=== PATIENT | female | born 2000 | race African-American/Black ===

== ENCOUNTER 2023-05-30 19:21 | Observation (INO) | payer OTHER ==
[2023-05-30 19:39] VITALS: BMI 24.4
[2023-05-30] MEDS ORDERED: hydrALAZINE 20 MG/ML VIAL SLOW IVP PRN ×2 (19:44→22:01)
[2023-05-30] MEDS ORDERED: Ondansetron PF 4 MG/2 ML Vial IVP PRN (22:01)
[2023-05-30] MEDS ORDERED: Promethazine HCl 25 MG/ML VIAL IM PRN (22:01)
[2023-05-30] MEDS ORDERED: Acetaminophen 500 MG TAB PO PRN (22:01)
[2023-05-30] MEDS ORDERED: fentaNYL 50 mcg/mL 1 mL Vial SLOW IVP PRN (22:01)
[2023-05-30] MEDS ORDERED: NIFEdipine 10 MG CAP PO PRN (22:15)
[2023-05-30] MEDS ORDERED: Lactated Ringer's 1,000 ML IV SCH (22:15)
[2023-05-30] MEDS ORDERED: NS w/ Oxytocin 30 units 500 ML IV SCH (22:15)
[2023-05-30] MEDS: Betamet Acet/Betamet Na Ph 30 MG/5 ML VIAL IM SCH (22:20)
[2023-05-31] MEDS: Betamet Acet/Betamet Na Ph 30 MG/5 ML VIAL IM SCH (22:18)
== END 2023-06-01 09:20 | disposition home or self-care (01) ==
LOC: CSHLD/OP 19:21 → CSHLD 22:01
PROVIDERS: ADMIT Family Medicine; ATTEND Family Medicine
DX: O47.03 False labor before 37 completed weeks of gestation, third trimester (principal); Z3A.32 32 weeks gestation of pregnancy
CPT/HCPCS: J0702; J2405

== ENCOUNTER 2023-06-07 01:39 | Day surgery (SDC) | payer OTHER ==
[2023-06-07 02:07] VITALS: BMI 24.6
[2023-06-07] MEDS ORDERED: hydrALAZINE 20 MG/ML VIAL SLOW IVP PRN (02:17)
[2023-06-07] MEDS ORDERED: Ondansetron PF 4 MG/2 ML Vial IVP PRN (02:17)
[2023-06-07] MEDS ORDERED: Acetaminophen 325 MG TAB PO PRN (02:18)
[2023-06-07] MEDS ORDERED: Lactated Ringer's 1,000 ML IV SCH (02:30)
[2023-06-07] MEDS ORDERED: Ondansetron PF 4 MG/2 ML Vial ONE ×4 (02:56→02:59)
== END 2023-06-07 05:20 | disposition home or self-care (01) ==
LOC: CSHLD/OP 01:39
PROVIDERS: ATTEND Family Medicine
DX: O47.03 False labor before 37 completed weeks of gestation, third trimester (principal); Z3A.33 33 weeks gestation of pregnancy
CPT/HCPCS: 96360; 96375; 99282; J2405

== ENCOUNTER 2023-06-15 21:37 | Day surgery (SDC) | payer OTHER ==
[2023-06-15 22:01] VITALS: BMI 24.7
[2023-06-15] MEDS ORDERED: hydrALAZINE 20 MG/ML VIAL SLOW IVP PRN (22:18)
[2023-06-15] MEDS ORDERED: Lactated Ringer's 1,000 ML IV SCH (22:30)
[2023-06-15] MEDS ORDERED: Acetaminophen 500 MG TAB PO SCH (23:30)
[2023-06-15 23:49] LABS: Bilirubin Neg (Negative); Blood, Urine Negative (Negative); Clarity Clear (Clear); Glucose, Urine (Dipstick) Normal (Negative); Ketone, Urine 15 mg/dL (Negative); Leukocyte 500 (Negative); Nitrite Negative (Negative); Protein, Urine (Dipstick) Negative (Neg-Trace)
[2023-06-16 00:17] LABS: CAUTI Indications for Culture Pregnancy; RBC/HPF None Seen HPF (0-3)
[2023-06-16 00:18] LABS: Bacteria/HPF 1+ HPF (None Seen); Squamous Epithelial 0-3 HPF (0-3); Urine Culture Reflex Yes Yes; Yeast-Hyphae 1+ HPF (None Seen)
[2023-06-16] MEDS ORDERED: Fluconazole 100 MG TAB PO SCH (01:00)
[2023-06-16 15:22] LABS: Chlamydia by PCR, Vaginal Swab Not Detected (NotDetected); GC by PCR, Vaginal Swab Not Detected (NotDetected)
== END 2023-06-16 01:13 | disposition home or self-care (01) ==
LOC: CSHLD/OP 21:37
PROVIDERS: ATTEND Family Medicine
DX: O47.03 False labor before 37 completed weeks of gestation, third trimester (principal); O99.891 Other specified diseases and conditions complicating pregnancy; N89.8 Other specified noninflammatory disorders of vagina; Z3A.34 34 weeks gestation of pregnancy
CPT/HCPCS: 81001; 87086; 87480; 87491; 87510; 87591; 87660; 96360; 99285

== ENCOUNTER 2023-06-23 15:29 | Day surgery (SDC) | payer OTHER ==
[2023-06-23 15:52] VITALS: BMI 24.7
[2023-06-23 16:56] LABS: Bilirubin Neg (Negative); Blood, Urine Negative (Negative); Clarity Clear (Clear); Glucose, Urine (Dipstick) Normal (Negative); Ketone, Urine Negative (Negative); Leukocyte Negative (Negative); Nitrite Negative (Negative); Protein, Urine (Dipstick) Negative (Neg-Trace); Urobilinogen Normal mg/dL (Less than 2); pH, Urine 6.5 (5.0-9.0)
[2023-06-23 17:09] LABS: RBC/HPF 0-3 HPF (0-3)
[2023-06-23 17:10] LABS: Bacteria/HPF 2+ HPF (None Seen); CAUTI Indications for Culture Pregnancy
[2023-06-23 17:11] LABS: Urine Culture Reflex Yes Yes
[2023-06-24 00:20] LABS: Chlamydia by PCR, Vaginal Swab Not Detected (NotDetected); GC by PCR, Vaginal Swab Not Detected (NotDetected)
== END 2023-06-23 18:40 | disposition home or self-care (01) ==
LOC: CSHLD/OP 15:29
PROVIDERS: ATTEND Family Medicine
DX: O47.03 False labor before 37 completed weeks of gestation, third trimester (principal); O23.593 Infection of other part of genital tract in pregnancy, third trimester; O99.891 Other specified diseases and conditions complicating pregnancy; R35.0 Frequency of micturition; N89.8 Other specified noninflammatory disorders of vagina; B96.89 Other specified bacterial agents as the cause of diseases classified elsewhere; Z79.82 Long term (current) use of aspirin; Z79.899 Other long term (current) drug therapy; Z3A.35 35 weeks gestation of pregnancy
CPT/HCPCS: 51701; 81001; 87086; 87480; 87491; 87510; 87591; 87660; 99284

== ENCOUNTER 2023-07-03 19:24 | Day surgery (SDC) | payer OTHER ==
[2023-07-03 20:08] VITALS: BMI 24.6
[2023-07-03] MEDS ORDERED: hydrALAZINE 20 MG/ML VIAL SLOW IVP PRN (20:30)
== END 2023-07-03 22:00 | disposition home or self-care (01) ==
LOC: CSHLD/OP 19:24
PROVIDERS: ATTEND Family Medicine
DX: O47.1 False labor at or after 37 completed weeks of gestation (principal); O99.820 Streptococcus B carrier state complicating pregnancy; O99.343 Other mental disorders complicating pregnancy, third trimester; F41.1 Generalized anxiety disorder; Z79.899 Other long term (current) drug therapy; Z3A.37 37 weeks gestation of pregnancy
CPT/HCPCS: 99283

== ENCOUNTER 2023-07-10 09:42 | Inpatient (IN) | payer OTHER ==
[~2023-07-10 09:42] MED LIST: Bupivacaine 0.25% HCL 30 ML VIAL ONE; Lidocaine 2% MPF 10 ML AMP (For Epidural Use) ONE; ePHEDrine Sulfate 50 MG/10 ML VIAL ONE
[2023-07-10] MEDS ORDERED: Lidocaine 1% (PF) 30 ML VIAL SC PRN (09:44)
[2023-07-10] MEDS ORDERED: Promethazine HCl 25 MG/ML VIAL IM PRN ×4 (09:44→22:43)
[2023-07-10] MEDS ORDERED: Diphenoxylate HCl/Atropine Tablet PO PRN (09:44)
[2023-07-10] MEDS ORDERED: Ibuprofen 800 MG TAB PO PRN (09:44)
[2023-07-10] MEDS ORDERED: Methylergonovine 0.2 MG/ML VIAL IM PRN (09:44)
[2023-07-10] MEDS ORDERED: Carboprost 250 MCG/ML AMP IM PRN (09:44)
[2023-07-10] MEDS ORDERED: HYDROcodone/Acetaminophen 5/325 mg Tablet PO PRN (09:44)
[2023-07-10] MEDS ORDERED: Misoprostol 200 MCG TAB PR PRN (09:44)
[2023-07-10] MEDS ORDERED: Acetaminophen 500 MG TAB PO PRN (09:44)
[2023-07-10] MEDS ORDERED: fentaNYL 50 mcg/mL 1 mL Vial SLOW IVP PRN (09:44)
[2023-07-10] MEDS ORDERED: Ondansetron PF 4 MG/2 ML Vial IVP PRN ×4 (09:44→22:43)
[2023-07-10] MEDS ORDERED: Tranexamic Acid 1,000 MG/10 ML VIAL IVP PRN (09:44)
[2023-07-10] MEDS ORDERED: hydrALAZINE 20 MG/ML VIAL SLOW IVP PRN ×2 (09:44→22:43)
[2023-07-10] MEDS ORDERED: Penicillin G 2.5 MILL.units 2.5 MILL.UNITS in Premix Bag 1 BAG IVPB SCH (09:45)
[2023-07-10] MEDS ORDERED: Oxytocin 30 units/NS 500 ML 500 ML IV SCH ×3 (09:45)
[2023-07-10] MEDS: Lactated Ringer's 1,000 ML IV SCH ×3 (10:11→16:28)
[2023-07-10] MEDS: Penicillin G Potassium 5 MILL.UNITS in Sodium Chloride 0.9% 100 ML IVPB SCH ×2 (10:11→10:33)
[2023-07-10 10:58] LABS: Hematocrit 36.2 % (34.9-44.5); Hemoglobin 11.8 g/dL (12.0-15.5); Mean Corpuscular HGB CONC 32.6 g/dL (32.0-36.0); Mean Corpuscular Hemoglobin 29.8 pg (27.0-33.0); Mean Corpuscular Volume 91.4 fl (81.6-98.3); Mean Platelet Volume 11.3 fl (7.4-10.4); Platelet Count 165 10x3/uL (150-450); RBC Distribution Width 13.2 % (11.5-14.5); Red Blood Cell (RBC) Count 3.96 10x6/uL (3.90-5.03); White Blood Cell (WBC) Count 6.7 10x3/uL (3.5-10.5)
[2023-07-10] MEDS ORDERED: Lactated Ringer's 500 ML IV PRN (11:18)
[2023-07-10] MEDS ORDERED: diphenhydrAMINE 50 MG/ML VIAL IVP PRN ×2 (11:18→20:02)
[2023-07-10] MEDS ORDERED: ePHEDrine Sulfate 50 MG/10 ML VIAL SLOW IVP PRN (11:18)
[2023-07-10] MEDS ORDERED: Acetaminophen 325 MG TAB PO PRN (11:18)
[2023-07-10] MEDS ORDERED: Naloxone HCl 0.4 mg/ml Vial IVP PRN ×4 (11:18→20:02)
[2023-07-10] MEDS ORDERED: Moisturizing Cream (Eucerin) 113 GM JAR TOP PRN ×2 (11:18→20:02)
[2023-07-10 11:23] VITALS: BMI 24.6
[2023-07-10] MEDS ORDERED: ACTIVE EPIDURAL FS PRN (11:30)
[2023-07-10] MEDS ORDERED: fentaNYL 2 mcg/Ropivacaine 0.2% Epidural 100 ML CADD EPIDURAL SCH (11:30)
[2023-07-10 11:36] LABS: HBSAg Index 0.23 S/CO (0-0.99); Hep B Surf Ag - L&D Non-Reactive S/CO (NonReactive)
[2023-07-10 11:39] LABS: Syphilis Antibody Nonreactive (Nonreactive); Syphilis Antibody Index 0.04 S/CO (<1.00 Non-Reactive)
[2023-07-10] MEDS ORDERED: ePHEDrine Sulfate 50 MG/10 ML VIAL ONE (14:12)
[2023-07-10] MEDS ORDERED: PHENYLEPHRINE-NS 100 MCG/ML 10 ML SYRINGE ONE (14:12)
[2023-07-10] MEDS: Penicillin G 2.5 MILL.units 2.5 MILL.UNITS in Premix Bag 1 BAG IVPB SCH ×3 (14:32→18:04)
[2023-07-10] MEDS ORDERED: Azithromycin 500 MG VIAL ONE ×2 (19:19→19:21)
[2023-07-10] MEDS ORDERED: CEFAZOLIN 2 GM VIAL ONE (19:19)
[2023-07-10] MEDS ORDERED: Oxytocin 10 UNITS/ML VIAL ONE (19:27)
[2023-07-10] MEDS ORDERED: Morphine PF 10 MG/10 ML VIAL ONE (19:27)
[2023-07-10] MEDS ORDERED: Ondansetron PF 4 MG/2 ML Vial ONE (19:27)
[2023-07-10] MEDS ORDERED: Dexamethasone 4 mg/ml Vial ONE (19:27)
[2023-07-10] MEDS ORDERED: Promethazine HCl 25 MG/ML VIAL ONE (19:53)
[2023-07-10] MEDS ORDERED: Lidocaine 1% PF 5 ML VIAL ONE (19:53)
[2023-07-10 20:01] LABS: RapidComm Collect By CBN
[2023-07-10 20:02] LABS: RapidComm Collect By CBN; pH (Cord, venous) 7.384 (7.250-7.350)
[2023-07-10] MEDS ORDERED: Promethazine HCl 25 MG SUPP PR PRN (20:02)
[2023-07-10] MEDS ORDERED: Fentanyl 50 MCG/1 ML VIAL SLOW IVP PRN (20:02)
[2023-07-10] MEDS ORDERED: Ondansetron HCl/PF 4 MG/2 ML Vial IVP PRN (20:02)
[2023-07-10] MEDS ORDERED: Naloxone HCl 0.4 mg/ml Vial IV PRN (20:02)
[2023-07-10] MEDS ORDERED: Meperidine HCl/PF 25 MG/ML VIAL SLOW IVP PRN (20:02)
[2023-07-10] MEDS ORDERED: Ketorolac Tromethamine 30 MG/ML VIAL IVP PRN (20:02)
[2023-07-10] MEDS ORDERED: Communication Order-Pharmacy FS SCH (20:15)
[2023-07-10] MEDS ORDERED: Ketorolac Tromethamine 30 MG/ML VIAL IVP SCH (20:15)
[2023-07-10] MEDS ORDERED: fentaNYL 50 mcg/mL 1 mL Vial SLOW IVP SCH (22:00)
[2023-07-10] MEDS ORDERED: diphenhydrAMINE 25 MG CAP PO PRN (22:43)
[2023-07-10] MEDS ORDERED: Boostrix 0.5 ML (Tdap) VIAL (>/=7 yrs of age) IM ONE (22:43)
[2023-07-10] MEDS ORDERED: Bisacodyl 10 MG SUPP PR PRN (22:43)
[2023-07-10] MEDS ORDERED: Simethicone Chewable 80 MG TAB PO PRN (22:43)
[2023-07-10] MEDS ORDERED: Ferrous Sulfate 325 MG TAB PO SCH (23:00)
[2023-07-10] MEDS ORDERED: Docusate 100 MG CAP PO SCH (23:00)
[2023-07-11] MEDS: Ketorolac Tromethamine 30 MG/ML VIAL IVP SCH ×3 (02:57→13:36)
[2023-07-11 04:28] LABS: Hematocrit 30.7 % (34.9-44.5); Hemoglobin 10.2 g/dL (12.0-15.5); Mean Corpuscular HGB CONC 33.2 g/dL (32.0-36.0); Mean Corpuscular Hemoglobin 29.9 pg (27.0-33.0); Mean Platelet Volume 11.6 fl (7.4-10.4); Platelet Count 168 10x3/uL (150-450); RBC Distribution Width 13.1 % (11.5-14.5); Red Blood Cell (RBC) Count 3.41 10x6/uL (3.90-5.03); White Blood Cell (WBC) Count 12.2 10x3/uL (3.5-10.5)
[2023-07-11] MEDS: Prenatal Vitamin 1 TAB PO SCH (08:07)
[2023-07-11] MEDS: Docusate 100 MG CAP PO SCH ×2 (08:07→21:32)
[2023-07-11] MEDS: HYDROcodone/Acetaminophen 5/325 mg Tablet PO PRN ×4 (08:50→21:33)
[2023-07-11] MEDS: Ferrous Sulfate 325 MG TAB PO SCH ×2 (08:52→21:32)
[2023-07-11] MEDS ORDERED: FLUoxetine HCl 20 MG CAP PO SCH (19:45)
[2023-07-11] MEDS: Ibuprofen 800 MG TAB PO SCH (21:32)
[2023-07-12] MEDS: Ibuprofen 800 MG TAB PO SCH ×3 (05:34→21:47)
[2023-07-12] MEDS: Ferrous Sulfate 325 MG TAB PO SCH ×2 (07:27→21:14)
[2023-07-12] MEDS: HYDROcodone/Acetaminophen 5/325 mg Tablet PO PRN ×4 (07:48→23:16)
[2023-07-12] MEDS: Docusate 100 MG CAP PO SCH ×2 (07:50→21:47)
[2023-07-12] MEDS: Prenatal Vitamin 1 TAB PO SCH (07:50)
[2023-07-12] MEDS: FLUoxetine HCl 20 MG CAP PO SCH (09:00)
[2023-07-13] MEDS: Ibuprofen 800 MG TAB PO SCH (05:44)
[2023-07-13] MEDS: Ferrous Sulfate 325 MG TAB PO SCH (07:21)
[2023-07-13] MEDS: Docusate 100 MG CAP PO SCH (08:00)
[2023-07-13] MEDS: FLUoxetine HCl 20 MG CAP PO SCH (08:00)
[2023-07-13] MEDS: Prenatal Vitamin 1 TAB PO SCH (08:01)
[2023-07-13] MEDS: HYDROcodone/Acetaminophen 5/325 mg Tablet PO PRN (08:06)
[2023-07-13 08:08] VITALS: BP 115/71; TEMP 98.2
== END 2023-07-13 10:30 | disposition home or self-care (01) | DRG 788 ==
LOC: CSHLD 09:42 → CSHPP 22:55
PROVIDERS: ADMIT Family Medicine; ATTEND Family Medicine
PROC: 10D00Z1 Extraction of Products of Conception, Low, Open Approach (ICD-10-PCS; principal; 2023-07-10)
PROC: 10H07YZ Insertion of Other Device into Products of Conception, Via Natural or Artificial Opening (ICD-10-PCS; 2023-07-10)
DX: O42.02 Full-term premature rupture of membranes, onset of labor within 24 hours of rupture (principal); Z3A.38 38 weeks gestation of pregnancy; Z37.0 Single live birth; O99.824 Streptococcus B carrier state complicating childbirth; O76 Abnormality in fetal heart rate and rhythm complicating labor and delivery; O36.5930 Maternal care for other known or suspected poor fetal growth, third trimester, not applicable or unspecified; N73.6 Female pelvic peritoneal adhesions (postinfective); O99.892 Other specified diseases and conditions complicating childbirth
CPT/HCPCS: 36415; 51702; 82805; 85027; 86780; 86850; 86900; 86901; 87340; 88307; J0456; J1100; J1885; J2274; J2405; J2540; J2550; J2590; J3010; J3490; J7120; S0020

== ENCOUNTER 2024-04-04 02:11 | Emergency (ER) | payer MEDICAID ==
[2024-04-04] MEDS ORDERED: hydrOXYzine 25 MG TAB ONE (02:42)
[2024-04-04 02:46] LABS: #Basophils 0.02 10x3/uL (0.0-0.2); #Monocytes 0.75 10x3/uL (0.0-1.1); %Basophils 0.2 % (0.0-2.0); %Lymphocytes 6.8 % (18.0-47.0); %Monocytes 7.7 % (0.0-10.0); %Neutrophils 84.9 % (40.0-75.0); Hematocrit 36.5 % (34.9-44.5); Hemoglobin 12.5 g/dL (12.0-15.5); Mean Corpuscular HGB CONC 34.2 g/dL (32.0-36.0); Mean Corpuscular Hemoglobin 30.6 pg (27.0-33.0); Mean Corpuscular Volume 89.2 fL (81.6-98.3); Mean Platelet Volume 10.5 fL (7.4-10.4); Platelet Count 208 10x3/uL (150-450); RBC Distribution Width 12.6 % (11.5-14.5); Red Blood Cell (RBC) Count 4.09 10x6/uL (3.90-5.03); White Blood Cell (WBC) Count 9.8 10x3/uL (3.5-10.5)
[2024-04-04 02:47] LABS: BHCG - Serum Negative (NEGATIVE); Pregs Control Background? CLEAR/WHITE (CLR/WHITE); Pregs Control Bar Appear? YES (CONTROL BAR)
[2024-04-04 02:53] LABS: Bilirubin Neg (Negative); Blood, Urine 150 (Negative); Clarity Clear (Clear); Glucose, Urine (Dipstick) Normal (Negative); Ketone, Urine 150 mg/dL (Negative); Leukocyte 100 (Negative); Nitrite Positive (Negative); Protein, Urine (Dipstick) 30 mg/dl (Neg-Trace); Specific Gravity, Urine 1.015 (1.005-1.030)
[2024-04-04 02:58] LABS: ALT (SGPT) 14 U/L (8-55); AST (SGOT) 23 U/L (5-34); Alkaline Phosphatase 34 U/L (40-110); Anion Gap 14 mmol/L (10-20); BUN (Urea Nitrogen) 8 mg/dL (7.0-18.7); Bilirubin, Total 2.1 mg/dL (0.2-1.2); Calc. Creatinine Clearance 0 mL/min (70-130); Calcium 8.7 mg/dL (7.8-10.44); Carbon Dioxide 18 mmol/L (22-29); Chloride 108 mmol/L (98-107); Estimated GFR 111; Globulin 3.2 g/dL (2.4-3.5); Glucose 102 mg/dL (70-105); Lipase 11 U/L (8-78); Magnesium 1.6 mg/dL (1.6-2.6); Potassium 3.3 mmol/L (3.5-5.1); Protein, Total 7.2 g/dL (6.0-8.3); Sodium 137 mmol/L (136-145)
[2024-04-04] MEDS ORDERED: cefTRIAXone (ROCEPHIN) 1 GM VIAL ONE (02:59)
[2024-04-04 03:01] LABS: Bacteria/HPF 2+ HPF (None Seen); CAUTI Indications for Culture Pelvic or flank pain; Urine Culture Reflex Yes Yes
[2024-04-04 03:04] LABS: Troponin I Less than 0.010 ng/mL (< 0.028)
[2024-04-04] MEDS ORDERED: Potassium Chloride 20 MEQ TAB ONE (04:26)
[2024-04-04] MEDS ORDERED: Acetaminophen 500 MG TAB ONE (04:31)
[2024-04-04] MEDS ORDERED: Iopamidol 370 76% 100 ML VIAL ONE (10:58)
== END 2024-04-04 04:35 | disposition home or self-care (01) ==
LOC: CSHERS 02:11
DX: F41.9 Anxiety disorder, unspecified (principal); N10 Acute pyelonephritis; E87.6 Hypokalemia; N39.0 Urinary tract infection, site not specified
CPT/HCPCS: 36415; 71045; 74177; 80053; 81001; 83690; 83735; 84443; 84484; 84703; 85025; 87077; 87086; 87186; 93005; 96365; J0696; Q9967